=== PATIENT | male | born 1940 | race Caucasian/White ===

== ENCOUNTER 2018-03-30 18:41 | Observation (INO) | payer OTHER ==
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
[2018-03-30 22:26] LABS: Absolute Lymphocytes (CBC) 1.3 K/uL (0.7-4.9); Absolute Monocytes 0.5 K/uL (0.1-1.3); Absolute Neutrophil 9.5 K/uL (1.8-8.0); Basophils % 0.4 % (0-1.3); Eosinophils % 0.1 % (0-4.4); Hematocrit 38.1 % (39.6-49.0); Lymphocytes % 11.6 % (15.3-44.8); MCH 26.3 pg (27.0-35.0); MCV 83.7 fL (80-100); MPV 9.4 fL (7.6-11.3); Monocytes % 4.3 % (3.3-12.3); RBC Red Blood Cell Count 4.55 M/uL (4.33-5.43)
[2018-03-30 22:30] LABS: Potassium 3.8 mEq/L (3.6-5.0)
[2018-03-31 00:49] VITALS: BMI 31.4
[2018-03-31] MEDS ORDERED: TRAMADOL HCL 50 MG TAB PO PRN (01:56)
[2018-03-31] MEDS ORDERED: ONDANSETRON 4 MG/2 ML VIAL IV PRN (01:56)
[2018-03-31] MEDS ORDERED: GLUCAGON 1 MG/VIAL IM PRN (05:32)
[2018-03-31] MEDS ORDERED: D50W 25 GM/50 ML SYRINGE IV PRN (05:32)
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
[2018-03-31 06:18] LABS: Urine Appearance CLEAR; Urine Bilirubin NEGATIVE (NEG); Urine Blood NEGATIVE (NEG); Urine Color YELLOW; Urine Glucose 3+ (NEG); Urine Protein TRACE (NEG); Urine Specific Gravity 1.025 (1.005-1.030); Urine Urobilinogen 0.2 mg/dL (0.2-1.0); Urine pH 5.5 (5.0-7.0)
[2018-03-31 06:24] LABS: Magnesium 1.7 mg/dL (1.8-2.5)
[2018-03-31 06:27] LABS: Urine Bacteria <20 /HPF (NONE SEEN); Urine Microscopic Reflex ORDER UMIC; Urine RBC NONE SEEN /HPF (NONE SEEN)
[2018-03-31 06:28] LABS: Urine Culture Reflex Order NOT NEEDED; Urine Mucus HEAVY /HPF (NONE SEEN)
[2018-03-31 06:36] VITALS: O2SAT 94
[2018-03-31] MEDS ORDERED: MAGNESIUM SULFATE 1 gm IVPB 1 GM/100 ML BAG IV ONE (06:39)
[2018-03-31] MEDS ORDERED: INSULIN -REGULAR HUMAN 50 UNIT/0.5 ML ML SQ SCH (07:30)
[2018-03-31] MEDS ORDERED: ENOXAPARIN 40 MG/0.4 ML SQ SCH (09:00)
[2018-03-31 12:00] VITALS: BP 126/69; TEMP 98.8
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
--- NOTE | 2018-03-31 14:39 | EKG ---
Test Date: 2018-03-30 Test Time: 21:04:11 Pit Tanner: TL MEASUREMENT RESULTS: Intervals: Rate: 97 [place]: 252 QRSD: 96 QT: 338 QTc: 429 [place]: P: 37 [place]: 252 QRS: -34 T: 29 INTERPRETIVE STATEMENTS: Sinus rhythm with 1st degree AV block Left axis deviation Low voltage QRS Abnormal ECG No previous ECG available for comparison Electronically Signed On 03-31-18 14:34:23 CDT by Jung Hines
--- NOTE | 2018-03-31 14:39 | EKG ---
Test Date: 2018-03-30 Test Time: 21:05:07 [employer] Attendant: TL MEASUREMENT RESULTS: Intervals: Rate: 101 [place]: 254 QRSD: 88 QT: 320 QTc: 414 [place]: P: [place]: 254 QRS: -33 T: 7 INTERPRETIVE STATEMENTS: Sinus tachycardia with 1st degree AV block Left axis deviation Possible Anterior infarct, age undetermined Abnormal ECG No previous ECG available for comparison Electronically Signed On 03-31-18 14:34:22 CDT by Jung Hines
[2018-03-31] MEDS ORDERED: METFORMIN HCL 500 MG TAB PO SCH (17:00)
[2018-03-31] MEDS ORDERED: CARVEDILOL 3.125 MG TAB PO SCH (21:00)
[2018-03-31] MEDS ORDERED: FUROSEMIDE 20 MG TABLET PO SCH (21:00)
[2018-03-31] MEDS ORDERED: ROSUVASTATIN 10 MG TAB PO SCH (21:00)
[2018-04-01] MEDS ORDERED: LISINOPRIL 20 MG TAB PO SCH (09:00)
[2018-04-01] MEDS ORDERED: PIOGLITAZONE 15 MG TAB PO SCH (09:00)
== END 2018-03-31 13:13 | disposition home or self-care (01) ==
LOC: ER 18:41 → ERHOLD 22:20 → 4TH 22:44
PROVIDERS: ADMIT Internal Medicine; ATTEND Internal Medicine
DX: S22.21XA Fracture of manubrium, initial encounter for closed fracture (principal); V43.52XA Car driver injured in collision with other type car in traffic accident, initial encounter; E11.9 Type 2 diabetes mellitus without complications; I10 Essential (primary) hypertension; E78.5 Hyperlipidemia, unspecified
CPT/HCPCS: 36415; 71250; 76705; 80048; 81003; 81015; 82962; 83735; 84484; 85025; 93005; 99285; G0378; J1650; J3475